=== PATIENT | male | born 1980 | race Hispanic/Latino ===

== ENCOUNTER 2016-10-04 08:36 | Outpatient (CLI) | payer OTHER ==
--- NOTE | 2016-10-04 10:08 | Fluoroscopy Report ---
Double contrast barium swallow. History: Dysphagia. Findings: The esophagus is normal in caliber. Normal peristalsis is present. There no filling defects or strictures. There is no evidence of hiatal hernia. A 13 mm compressed barium tablet traverses the esophagus empties into the stomach without delay. No gastroesophageal reflux. Impression: Normal study.
== END 2016-10-04 08:37 | disposition home or self-care (01) ==
LOC: FLUORO 08:36
PROVIDERS: ATTEND Internal Medicine
DX: R13.10 Dysphagia, unspecified (principal); J45.909 Unspecified asthma, uncomplicated; J32.9 Chronic sinusitis, unspecified; F41.9 Anxiety disorder, unspecified
CPT/HCPCS: 74220